=== PATIENT | female | born 2000 | race Hispanic/Latino ===

== ENCOUNTER 2025-08-15 18:41 | Emergency (ER) | payer BC ==
[~2025-08-15] VITALS: Ht 160 cm; Wt 79.4 kg
[2025-08-15 19:08] LABS: NUCLEATED RED BLOOD CELLS 0.0 % (0.0-0.19); PLATELET COUNT (AUTO) 280.0 K/uL (130-400); RED BLOOD CELL COUNT(AUTO) 5.18 MIL/uL (4.00-5.50); RED CELL DISTRIBUTION WIDTH 12.6 % (11.0-15.5); WHITE BLOOD COUNT (AUTO) 7.6 K/uL (4.8-10.8)
[2025-08-15 19:19] LABS: CREATININE 1.0 mg/dL (0.5-1.0); GLOMERULAR FILTR. RATE CALC 80 mL/min (>90); GLUCOSE,RANDOM 92 mg/dL (70-105); SODIUM SERUM 138 mmol/L (136-145); UREA NITROGEN, BLOOD 13 mg/dL (7-18)
[2025-08-15 19:24] LABS: ALCOHOL, BLOOD < 3 mg/dL (0-10); CREATINE KINASE, TOTAL 115 U/L (21-232)
[2025-08-15 19:24] LABS: AMPHET/METH SCREEN,URINE NEGATIVE (NEGATIVE); BARBITURATE SCREEN, URINE NEGATIVE (NEGATIVE); CANNABINOID SCREEN,URINE NEGATIVE (NEGATIVE); COCAINE SCREEN,URINE NEGATIVE (NEGATIVE)
--- NOTE | 2025-08-15 19:55 | NUR ---
[facility] CONTACTED TO INITIATE SCREENING, WORKER REPORTS PATIENT HAD CALLED THE CRISIS LINE EARLIER TODAY, REPORTED SHE HAD CUT HERSELF ON HER UPPER THIGHS IN AN ATTEMPT TO HURT SELF AND POLICE WERE NOTIFIED. SUPERFICIAL LACERATIONS NOT REQUIRING SUTURES NOTED TO UPPER THIGHS, PATIENT STATING SHE CUTS SELF TO RELIEVE STRESS AND WAS ATTEMPTING TO HURT SELF, PATIENT IS NOT ON A WARRANT. PATIENT FURTHER STATES SHE WILL HANG HERSELF IF LEFT ALONE. PATIENT IS CALM AND COOPERATIVE AT THIS TIME, VS WNL, SCREENER WILL BE CONTACTED.
--- NOTE | 2025-08-15 21:08 | NUR ---
SCREENER AT BEDSIDE
--- NOTE | 2025-08-15 21:18 | NUR ---
SCREENER SPEAKING WITH SPOUSE
--- NOTE | 2025-08-15 21:55 | NUR ---
PER SCREENER, PATIENT DOES NOT MEET CRITERIA FOR INPATIENT TREATMENT AND MAY BE DISCHARGED HOME, SAFETY PLAN DISCUSSED WITH PATIENT BY SCREENER.
--- NOTE | 2025-08-15 22:00 | ERN ---
General Chief Complaint: Suicidal Ideation Stated Complaint: SUICIDAL IDEATION Time Seen by MD: 18:42 Time Seen by Midlevel: 18:42 Source: patient History of Present Illness Initial Comments 25-year-old female presents to the emergency department for evaluation of suicide ideation that has been ongoing for three days Allergies: Coded Allergies: Antihistamines - Alkylamine (Unverified Allergy, Unknown, 08/15/25) Antihistamines - Ethanolamine (Unverified Allergy, Unknown, 08/15/25) Antihistamines - Ethylenediamine (Unverified Allergy, Unknown, 08/15/25) Antihistamines - Piperazine (Unverified Allergy, Unknown, 08/15/25) Antihistamines - Piperidine (Unverified Allergy, Unknown, 08/15/25) Past Medical History Past Medical History: Anxiety, Depression Medical History Other: POTS, PTSD Past Surgical History: BTL Female( History) : 0 Para: 0 Aborts: 1 ROS Dictation CONSTITUTIONAL: Negative except for HPI HEAD/FACE: Negative except for HPI EENT: Negative except for HPI RESPIRATORY: Negative except for HPI GASTROINTESTINAL/ABDOMINAL: Negative except for HPI GENITOURINARY: Negative except for HPI MUSCULOSKELETAL: Negative except for HPI INTEGUMENTARY: Negative except for HPI NEUROLOGICAL/PSYCH: Negative except for HPI HEMATOLOGIC/LYMPHATIC: Negative except for HPI All Systems Negative, Except as noted above. 13 point review of systems assessed and all negative except for above. Physical Exam Physical Exam Dictation PHYSICAL EXAM: GENERAL: alert,, awake oriented x 3 HEENT: EOMI, Sclera non icteric, moist mucosa NECK: Supple, no JVD, trachea midline LUNGS: Clear breath sounds bilaterally. No wheezes HEART: Regular rate and rhythm. Normal S1 and S2, without murmurs ABD: Abdomen soft, nontender. Bowel sounds present EXT: No clubbing or cyanosis, NEURO: Alert and oriented to person, follows commands Results Laboratory and Microbiology Lab and Micro Result Laboratory Tests Test 08/15/25 18:51 08/15/25 18:52 Urine Opiates Screen NEGATIVE (NEGATIVE) Urine Barbiturates Screen NEGATIVE (NEGATIVE) Urine Phencyclidine Screen NEGATIVE (NEGATIVE) Urine Amphetamines Screen NEGATIVE (NEGATIVE) Urine Benzodiazepines Screen NEGATIVE (NEGATIVE) Urine Cocaine Screen NEGATIVE (NEGATIVE) Urine Marijuana (THC) Screen NEGATIVE (NEGATIVE) White Blood Count 7.6 K/uL (4.8-10.8) Red Blood Count 5.18 MIL/uL (4.00-5.50) Hemoglobin 15.1 g/dL (12.0-16.0) Hematocrit 45.6 % (36-48) Mean Corpuscular Volume 88.0 fL (79-99) Mean Corpuscular Hemoglobin 29.2 pg (27.0-33.0) Mean Corpuscular Hemoglobin Concent 33.1 g/dL (32.0-36.0) Red Cell Distribution Width 12.6 % (11.0-15.5) Platelet Count 280 K/uL (130-400) Mean Platelet Volume 9.6 fL (7.5-10.5) Nucleated Red Blood Cells 0.0 % (0.0-0.19) Sodium Level 138 mmol/L (136-145) Potassium Level 4.1 mmol/L (3.5-5.1) Chloride Level 102 mmol/L (101-111) Carbon Dioxide Level 29 mmol/L (21-32) Blood Urea Nitrogen 13 mg/dL (7-18) Creatinine 1.0 mg/dL (0.5-1.0) Glomerular Filtration Rate Calc 80 mL/min (>90) Random Glucose 92 mg/dL (70-105) Total Calcium 9.0 mg/dL (8.5-10.1) Total Creatine Kinase 115 U/L (21-232) Salicylates Level < 2.8 mg/dL (2.8-20.0) L Acetaminophen Level < 1 mcg/mL (10-30) L Serum Alcohol < 3 mg/dL (0-10) Labs Reviewed?: Yes MDM MDM: 25-year-old female presents to the ER for suicidal ideation. Patient medically cleared. Patient was screened and she does not meet criteria for inpatient psychiatric care. The patient will be discharged with strict return precautions Differential diagnosis: Suicide ideation, psychiatric problem, dehydration There are no social concerns with this patient. Prescription drug management Prescriptions will include: None Medical management and examination interpretation discussions were had by me with other qualified healthcare professionals as indicated for the patient's care. ED Course Orders Procedure Category Date Status Time Cbc Without LAB 08/15/25 Complete Differential 18:42 Basic Metabolic Panel LAB 08/15/25 Complete 18:42 Creatine Kinase, Total LAB 08/15/25 Complete 18:42 Salicylate LAB 08/15/25 Complete 18:42 Acetaminophen LAB 08/15/25 Complete 18:42 Drug Screen Urine LAB 08/15/25 Complete 18:42 Alcohol, Blood LAB 08/15/25 Complete 18:42 Suicide Precautions CPOE 08/15/25 Transmitted 18:45 One To One Sitter CPOE 08/15/25 Transmitted 18:45 Vital Signs Date Time Temp Pulse Resp B/P (MAP) Pulse Ox O2 Delivery O2 Flow Rate FiO2 08/15/25 20:03 98.6 95 15 113/75 97 Room Air* 0 21 08/15/25 18:46 98.8 97 14 113/71 97 Room Air 0 DX & DISP Disposition: Discharge Departure Impression: Primary Impression: Psychiatric problem Condition: Stable Referrals: SELF,REFERRAL (PCP) Time of Disposition: 21:58 I have reviewed the case, and I agree with, Diagnosis and Plan I performed the substantive portion of the visit. I have reviewed and personally made and approve the management plan that is documented in the note by myself or the FUENTES. I acknowledge for responsibility for the patient's management plan. DEVI MATA PAC Aug 15, 2025 22:00
[2025-08-15 22:25] VITALS: BP 127/79; PULSE 90; RESP 18; TEMP 98.6; O2SAT 100
== END 2025-08-15 22:26 | disposition home or self-care (01) ==
LOC: EDH 18:41
DX: F99 Mental disorder, not otherwise specified (principal); R45.851 Suicidal ideations; F41.9 Anxiety disorder, unspecified; F32.A Depression, unspecified; Z88.8 Allergy status to other drugs, medicaments and biological substances
CPT/HCPCS: 99283; 82550; 80048; 80305; 36415; 85027; G0481